=== PATIENT | male | born 1995 | race African-American/Black ===

== ENCOUNTER 2024-09-23 12:13 | Emergency (ER) | payer MEDICAID ==
[~2024-09-23] VITALS: Ht 185.4 cm; Wt 73.0 kg
[2024-09-23 12:16] VITALS: BP 104/75; PULSE 111; RESP 16; TEMP 37; O2SAT 98
== END 2024-09-23 13:50 | disposition left against medical advice (07) ==
LOC: ER 12:13
DX: M25.559 Pain in unspecified hip (principal); Z53.21 Procedure and treatment not carried out due to patient leaving prior to being seen by health care provider